=== PATIENT | female | born 1980 | race Caucasian/White ===

== ENCOUNTER 2025-03-29 11:02 | Emergency (ER) | payer OTHER, SELFPAY ==
--- NOTE | ~2025-03-29 | XR_ITS ---
EXAM/PROCEDURE: XR chest 2V - 03/29/2025 13:00 CDT HISTORY: 44 years old Female with chest pain, anxiety TECHNIQUE: Two view(s) of the chest. COMPARISON: None available. FINDINGS: LUNGS/ PLEURA: No focal consolidation. No appreciable pneumothorax or large pleural effusion. HEART/ MEDIASTINUM: Heart appears normal in size. BONES: No acute osseous abnormality. OTHER: Visualized upper abdomen is unremarkable. IMPRESSION: No acute process. Reviewed, dictated and finalized at location A. IMPRESSION: No acute process.
--- NOTE | 2025-03-29 11:03 | ECG_ITS ---
Test Date: 2025-03-29 11:09:10 Measurements Intervals [place] Rate: 133 P: 69 MS: 108 QRS: 34 QRSD: 97 T: 56 QT: 332 QTc: 496 Interpretive Statements SINUS TACHYCARDIA WITH SHORT MS INTERVAL INCOMPLETE RIGHT BUNDLE BRANCH BLOCK NONSPECIFIC ST & T-WAVE ABNORMALITY- DIFFUSE LEADS ABNORMAL ECG No previous ECG available for comparison Electronically Signed On 03-29-2025 11:09:47 CDT by Jem Kendrick D.O.
[2025-03-29 11:19] VITALS: BP 154/94; PULSE 128; RESP 20; TEMP 36.7; O2SAT 99
[2025-03-29 11:26] LABS: Basophils Percent Auto 0.4 % (0.2-1.2); Eosinophils Absolute Auto 0.1 K/mm3 (0-0.3); Eosinophils Percent Auto 1.3 % (0-4.4); Hematocrit 38.2 % (37.0-47.0); Hemoglobin 12.8 g/dL (12.0-15.0); Immature Granulocyte Absolute 0.02 K/mm3 (0.00-0.031); Immature Granulocyte Percent A 0.2 % (0-0.5); Lymphocytes Absolute Auto 3.38 K/mm3 (0.9-3.2); Lymphocytes Percent Auto 40.8 % (18.3-44.2); Mean Corpuscular HGB Conc 33.5 g/dl (32-36); Mean Corpuscular Hemoglobin 32.6 pg (26-34); Mean Corpuscular Volume 97.2 fl (80-100); Mean Platelet Volume 9.7 fl (7.4-10.4); Monocytes Absolute Auto 0.6 K/mm3 (0.1-0.6); Monocytes Percent Auto 7.2 % (2.6-8.5); Neutrophils Absolute Auto 4.2 K/mm3 (1.3-6.7); Neutrophils Percent Auto 50.1 % (45.5-73.1); Platelet Count Result 255 k/mm3 (150-375); Red Blood Count 3.93 M/mm3 (4.2-5.4); Red Cell Distribution Width 13.9 % (11.5-14.5); White Blood Count 8.3 K/mm3 (4.5-10.0)
[2025-03-29 11:36] LABS: Prothrombin Time 13.5 Seconds (11.1-14.7)
[2025-03-29 11:37] LABS: Partial Thromboplastin Time 21.9 Seconds (22.3-36.8)
[2025-03-29 11:47] LABS: Alanine Aminotransferase 16 U/L (6-35); Albumin Level 4.7 g/dL (3.5-5.1); Alkaline Phosphatase 67 U/L (38-126); Anion Gap 11 mmol/L (4-12); Aspartate Amino Transferase 29 U/L (14-36); Bilirubin,Total 0.6 mg/dL (0.2-1.3); Blood Urea Nitrogen 14 mg/dL (7-17); Calcium 8.8 mg/dL (8.4-10.2); Carbon Dioxide 21 mmol/L (22-30); Chloride 106 mmol/L (98-107); Estimated CRCL calculation 162 ml/min; Estimated Glomerular Filt Rate > 60; Glucose 119 mg/dL (65-110); Lipase 53 U/L (23-300); Potassium 3.2 mmol/L (3.4-5.0); Sodium 138 mmol/L (137-145); Total Protein 7.7 g/dL (6.3-8.2)
[2025-03-29 11:50] LABS: Troponin I < 0.012 ng/mL (0.000-0.034)
[2025-03-29 13:19] VITALS: BP 151/89; PULSE 108; RESP 18; TEMP 36.4; O2SAT 99
--- NOTE | 2025-03-29 13:30 | ED_ITS ---
HPI - Chest Pain General Chief Complaint: Chest Pain <Naty Navarro PA-C - Last Filed: 03/29/25 13:40> Stated Complaint: CP, sick x 1 week <Naty Navarro PA-C - Last Filed: 03/29/25 13:40> Time Seen by Provider: 03/29/25 15:41 <Naty Navarro PA-C - Last Filed: 03/29/25 13:40> Focused HPI: 44 year old female presenting with tachycardia. For the last week she endorses having panic attacks everyday as well as intermittent radiating left-sided chest pain yesterday that radiates down her arm and into her back. It gets worse throughout the day. She states she took ibuprofen and aspirin but is not sure if it has helped. She reports both parents had heart attacks before age 50. She also went off her antidepressants 6 weeks ago. She is reporting anxiety and increase in panic attacks. Also states she has noticed mild increased swelling in her legs but states this is worse after standing all day while working at [employer]. Smokes 1ppd. GENERAL: Well-appearing, well-nourished, and in no acute distress. Anxious HEAD: Normocephalic, atraumatic. CHEST: Clear to auscultation. ?No respiratory distress. Tachycardic, regular rhythm. No lower extremity edema HEART: Regular rate and rhythm.? NEURO: ?Alert and oriented x3. Patient screened in triage and initial orders placed.? ?Additional care and disposition to be based upon?diagnostic testing and treatment. <Naty Navarro PA-C - Last Filed: 03/29/25 13:40> History of Present Illness HPI narrative: as per mse <Cynthia Russell III, DO - Last Filed: 03/29/25 21:32> Related Data Allergies/Adverse Reactions: Allergies Allergy/AdvReac Type Severity Reaction Status Date / Time Sulfa (Sulfonamide AdvReac Mild Unknown Verified 03/29/25 15:52 Antibiotics) <Naty Navarro PA-C - Last Filed: 03/29/25 13:40> Review of Systems 2 Review of Systems: All systems reviewed & are unremarkable except as noted in HPI and below <Cynthia Russell III, DO - Last Filed: 03/29/25 21:32> Exam 2 Const: General: healthy appearing and no acute distress <Cynthia Umang Russell III, DO - Last Filed: 03/29/25 21:32> Nutritional Appearance: well nourished <Cynthia Umang Russell III, DO - Last Filed: 03/29/25 21:32> Orientation/consciousness: patient oriented x3 <Cynthia Umang Russell III, DO - Last Filed: 03/29/25 21:32> Limitations: no limitations <Cynthia Umang Russell III, DO - Last Filed: 03/29/25 21:32> Eyes: Pupils: Equal, round and reactive pupils present <Cynthia Umang Russell III, DO - Last Filed: 03/29/25 21:32> EOM: EOMs intact bilaterally <Cynthia Umang Russell III, DO - Last Filed: 03/29/25 21:32> Neck: Neck: normal visual inspection <Cynthia Umang Russell III, DO - Last Filed: 03/29/25 21:32> Chest: Chest palpation & inspection: normal inspection of the chest < Cynthia Umang Russell III, DO - Last Filed: 03/29/25 21:32> Resp: Effort & Inspection: normal respiratory effort <Cynthia Umang Russell III, DO - Last Filed: 03/29/25 21:32> Auscultation: clear to auscultation bilaterally <Cynthia Umang Russell III, DO - Last Filed: 03/29/25 21:32> Cardio: Rate: regular rate <Cynthia Umang Russell III, DO - Last Filed: 03/29/25 21:32> Rhythm: regular rhythm <Cynthia Umang Russell III, DO - Last Filed: 03/29/25 21:32> GI: GI Palp: Yes Soft to palpation and No Tenderness to palpation present (GI) <Cynthia Umang Russell III, DO - Last Filed: 03/29/25 21:32> Auscultation: normal bowel sounds <Cynthia Umang Russell III, DO - Last Filed: 03/29/25 21:32> Back/Spine/Pelvis: Back: no CVA tenderness <Cynthia Umang Russell III, DO - Last Filed: 03/29/25 21:32> Skin: General skin exam: normal color <Cynthia Umang Russell III, DO - Last Filed: 03/29/25 21:32> Rashes: no rashes <Cynthia Umang Russell III, DO - Last Filed: 03/29/25 21:32> Neuro: General: patient oriented x3, moves all extremities, no meningeal signs, no focal motor deficits and CN's II-XI intact bilaterally <Cynthia Umang Russell III, DO - Last Filed: 03/29/25 21:32> Cranial nerves: Yes Nystagmus not present <Cynthia Umang Russell III, DO - Last Filed: 03/29/25 21:32> Speech: normal speech <Cynthia Umang Russell III, DO - Last Filed: 03/29/25 21:32> Extrem: General: normal to inspection and no clubbing, cyanosis or edema < Cynthia Umang Russell III, DO - Last Filed: 03/29/25 21:32> Psych: Mental Status: mental status grossly normal <Cynthia Umang Russell III, DO - Last Filed: 03/29/25 21:32> Affect: Anxious affect present <Cynthia Umang Russell III, DO - Last Filed: 03/29/25 21:32> Attitude: cooperative <Cynthia Umang Russell III, DO - Last Filed: 03/29/25 21:32> Course Vital Signs Vital signs: Vital Signs Temperature 98.0 F 03/29/25 11:19 Pulse Rate 128 H 03/29/25 11:19 Respiratory Rate 20 03/29/25 11:19 Blood Pressure 154/94 H 03/29/25 11:19 Pulse Oximetry 99 03/29/25 11:19 Oxygen Delivery Room Air 03/29/25 11:19 Temperature 97.6 F 03/29/25 13:19 Pulse Rate 108 H 03/29/25 13:19 Respiratory Rate 18 03/29/25 13:19 Blood Pressure 151/89 H 03/29/25 13:19 Pulse Oximetry 99 03/29/25 13:19 Oxygen Delivery Room Air 03/29/25 15:25 <Naty Navarro PA-C - Last Filed: 03/29/25 13:40> Vital Signs Temperature 98.0 F 03/29/25 11:19 Pulse Rate 128 H 03/29/25 11:19 Respiratory Rate 20 03/29/25 11:19 Blood Pressure 154/94 H 03/29/25 11:19 Pulse Oximetry 99 03/29/25 11:19 Oxygen Delivery Room Air 03/29/25 11:19 Temperature 97.6 F 03/29/25 13:19 Pulse Rate 108 H 03/29/25 13:19 Respiratory Rate 18 03/29/25 13:19 Blood Pressure 151/89 H 03/29/25 13:19 Pulse Oximetry 99 03/29/25 13:19 Oxygen Delivery Room Air 03/29/25 15:25 <Cynthia Russell III, DO - Last Filed: 03/29/25 21:32> MDM - Chest Pain MDM Narrative Medical decision making narrative: Pt presents with intermittent left sided cp and pain in left arm. Pt is of cymbalta for 6 weeks and anxiety has increased. cardiac work up neg with trop - x2 abd ekg nonspecific but unchanged x 2. will start pt back on cymbalta at lower dose and a few ativan to bridge. <Cynthia Russell III, DO - Last Filed: 03/29/25 21:32> Lab Data Result diagrams: 03/29/25 11:14 03/29/25 11:14 <Naty Navarro PA-C - Last Filed: 03/29/25 13:40> Labs: Lab Results 03/29/25 03/29/25 Range/Units 11:14 14:00 WBC 8.3 (4.5-10.0) K/mm3 RBC 3.93 L (4.2-5.4) M/mm3 Hgb 12.8 (12.0-15.0) g/dL Hct 38.2 (37.0-47.0) % MCV 97.2 (80-100) fl MCH 32.6 (26-34) pg MCHC 33.5 (32-36) g/dl RDW 13.9 (11.5-14.5) % Plt Count 255 (150-375) k/mm3 MPV 9.7 (7.4-10.4) fl Immature Gran % (Auto) 0.2 (0-0.5) % Neut % (Auto) 50.1 (45.5-73.1) % Lymph % (Auto) 40.8 (18.3-44.2) % Barry % (Auto) 7.2 (2.6-8.5) % Eos % (Auto) 1.3 (0-4.4) % Baso % (Auto) 0.4 (0.2-1.2) % Lymph # (Auto) 3.38 H (0.9-3.2) K/mm3 Barry # (Auto) 0.6 (0.1-0.6) K/mm3 Eos # (Auto) 0.1 (0-0.3) K/mm3 Baso # (Auto) 0.0 (0.0-0.1) K/mm3 Abs Immat Gran (auto) 0.02 (0.00-0.031) K/mm3 Absolute Neuts (auto) 4.2 (1.3-6.7) K/mm3 Absolute Nucleated RBC 0.000 (0.0-0.012) K/mm3 Nucleated RBC % 0.0 (0.0-0.2) % PT 13.5 (11.1-14.7) Seconds INR 1.0 APTT 21.9 L (22.3-36.8) Seconds D-Dimer 0.34 (<0.48) ug/mL Sodium 138 (137-145) mmol/L Potassium 3.2 L (3.4-5.0) mmol/L Chloride 106 (98-107) mmol/L Carbon Dioxide 21 L (22-30) mmol/L Anion Gap 11 (4-12) mmol/L BUN 14 (7-17) mg/dL Creatinine 0.45 L (0.7-1.0) mg/dL Estim Creat Clear Calc 162 ml/min Estimated GFR > 60 (59 - ) Glucose 119 H (65-110) mg/dL Calcium 8.8 (8.4-10.2) mg/dL Magnesium 1.7 (1.6-2.3) mg/dL Total Bilirubin 0.6 (0.2-1.3) mg/dL AST 29 (14-36) U/L ALT 16 (6-35) U/L Alkaline Phosphatase 67 (38-126) U/L Troponin I < 0.012 < 0.012 (0.000-0.034) ng/mL NT-Pro-B Natriuret Pep 137 H (19.9-100) pg/mL Total Protein 7.7 (6.3-8.2) g/dL Albumin 4.7 (3.5-5.1) g/dL Lipase 53 (23-300) U/L <Naty Navarro PA-C - Last Filed: 03/29/25 13:40> Lab Results 03/29/25 03/29/25 Range/Units 11:14 14:00 WBC 8.3 (4.5-10.0) K/mm3 RBC 3.93 L (4.2-5.4) M/mm3 Hgb 12.8 (12.0-15.0) g/dL Hct 38.2 (37.0-47.0) % MCV 97.2 (80-100) fl MCH 32.6 (26-34) pg MCHC 33.5 (32-36) g/dl RDW 13.9 (11.5-14.5) % Plt Count 255 (150-375) k/mm3 MPV 9.7 (7.4-10.4) fl Immature Gran % (Auto) 0.2 (0-0.5) % Neut % (Auto) 50.1 (45.5-73.1) % Lymph % (Auto) 40.8 (18.3-44.2) % Barry % (Auto) 7.2 (2.6-8.5) % Eos % (Auto) 1.3 (0-4.4) % Baso % (Auto) 0.4 (0.2-1.2) % Lymph # (Auto) 3.38 H (0.9-3.2) K/mm3 Barry # (Auto) 0.6 (0.1-0.6) K/mm3 Eos # (Auto) 0.1 (0-0.3) K/mm3 Baso # (Auto) 0.0 (0.0-0.1) K/mm3 Abs Immat Gran (auto) 0.02 (0.00-0.031) K/mm3 Absolute Neuts (auto) 4.2 (1.3-6.7) K/mm3 Absolute Nucleated RBC 0.000 (0.0-0.012) K/mm3 Nucleated RBC % 0.0 (0.0-0.2) % PT 13.5 (11.1-14.7) Seconds INR 1.0 APTT 21.9 L (22.3-36.8) Seconds D-Dimer 0.34 (<0.48) ug/mL Sodium 138 (137-145) mmol/L Potassium 3.2 L (3.4-5.0) mmol/L Chloride 106 (98-107) mmol/L Carbon Dioxide 21 L (22-30) mmol/L Anion Gap 11 (4-12) mmol/L BUN 14 (7-17) mg/dL Creatinine 0.45 L (0.7-1.0) mg/dL Estim Creat Clear Calc 162 ml/min Estimated GFR > 60 (59 - ) Glucose 119 H (65-110) mg/dL Calcium 8.8 (8.4-10.2) mg/dL Magnesium 1.7 (1.6-2.3) mg/dL Total Bilirubin 0.6 (0.2-1.3) mg/dL AST 29 (14-36) U/L ALT 16 (6-35) U/L Alkaline Phosphatase 67 (38-126) U/L Troponin I < 0.012 < 0.012 (0.000-0.034) ng/mL NT-Pro-B Natriuret Pep 137 H (19.9-100) pg/mL Total Protein 7.7 (6.3-8.2) g/dL Albumin 4.7 (3.5-5.1) g/dL Lipase 53 (23-300) U/L <Cynthia Russell III, DO - Last Filed: 03/29/25 21:32> Discharge Plan Discharge Clinical Impression: Atypical chest pain <Naty Navarro PA-C - Last Filed: 03/29/25 13:40> Patient Disposition: Home <JS Castro Last Filed: 03/29/25 13:40> Condition: Stable <JS Castro Last Filed: 03/29/25 13:40> Instructions: Antibiotic Form, Anxiety (ED), Chest Wall Pain (ED) <JS Castro Last Filed: 03/29/25 13:40> Patient Language: Lebanese <JS Castro Last Filed: 03/29/25 13:40> Prescriptions: New duloxetine [Cymbalta] 30 mg capsule,delayed release(DR/EC) 30 mg PO DAILY Qty: 60 0RF lorazepam [Ativan] 0.5 mg tablet 0.5 mg PO BID PRN (Reason: anxiety) Qty: 10 0RF lorazepam [Ativan] 0.5 mg tablet 0.5 mg PO BID PRN (Reason: anxiety) Qty: 10 0RF lorazepam 0.5 mg tablet 0.5 mg PO BID PRN (Reason: anxiety) Qty: 10 0RF lorazepam [Ativan] 0.5 mg tablet 0.5 mg PO BID PRN (Reason: anxiety) Qty: 10 0RF <Naty Navarro PA-C - Last Filed: 03/29/25 13:40> Follow-up/Referrals: PHYSICIAN NOT ON STAFF,NONSTAFF [Non-Staff] - <Naty Navarro PA-C - Last Filed: 03/29/25 13:40> Quality HEART score for chest pain patients History: slightly suspicious <Cynthia Umang Russell III, DO - Last Filed: 03/29/25 21:32> ECG: non specific repolarization disturbance/LBTB/PM <Cynthia Umang Russell III, DO - Last Filed: 03/29/25 21:32> Age: < or = to 45 years <Cynthia Umang Russell III, DO - Last Filed: 03/29/25 21:32> Risk factors: 1 or 2 risk factors <Cynthia Umang Russell III, DO - Last Filed: 03/29/25 21:32> Troponin: < or = to 1x normal limit <Cynthia Umang Russell III, DO - Last Filed: 03/29/25 21:32> Heart score: 2 <Cynthia Umang Russell III, DO - Last Filed: 03/29/25 21:32>
--- NOTE | 2025-03-29 13:52 | ECG_ITS ---
Test Date: 2025-03-29 13:55:48 Measurements Intervals [place] Rate: 98 P: 69 NM: 146 QRS: 33 QRSD: 100 T: 44 QT: 367 QTc: 470 Interpretive Statements SINUS RHYTHM POSSIBLE LEFT ATRIAL ENLARGEMENT NONSPECIFIC ST & T-WAVE ABNORMALITY- DIFFUSE LEADS BORDERLINE ECG Compared to ECG 03/29/2025 11:09:10 HEART RATE HAS DECREASED Electronically Signed On 03-29-2025 14:31:41 CDT by Jem Kendrick D.O.
[2025-03-29 13:55] LABS: Magnesium 1.7 mg/dL (1.6-2.3)
[2025-03-29 13:59] LABS: D Dimer 0.34 ug/mL (<0.48)
[2025-03-29 14:06] LABS: NT Pro B Type Natriuretic Pept 137 pg/mL (19.9-100)
[2025-03-29 14:28] LABS: Troponin I < 0.012 ng/mL (0.000-0.034)
[2025-03-29] MEDS: POTASSIUM CHLORIDE 20 MEQ PACKET (FOR LIQUID) 40 MEQ PO (16:34)
== END 2025-03-29 16:40 | disposition home or self-care (01) ==
LOC: ANHED 16:07
PROVIDERS: Emergency Medicine; Physician Assistant; Emergency Provider Emergency Medicine; PCP Student in an Organized Health Care Education/Training Program
DX: R07.89 Other chest pain (principal); F41.9 Anxiety disorder, unspecified; R00.0 Tachycardia, unspecified; R94.31 Abnormal electrocardiogram [ECG] [EKG]; I45.10 Unspecified right bundle-branch block
CPT/HCPCS: 36415; 71046; 80053; 83690; 83735; 83880; 84484; 85025; 85380; 85610; 85730; 93005; 99284; A9270